=== PATIENT | male | born 1990 | race Caucasian/White ===

== ENCOUNTER 2017-03-22 09:56 | Day surgery (SDC) | payer OTHER ==
[2017-03-22] VITALS (11 sets, daily range): BP systolic 114–132; BP diastolic 59–86
[~2017-03-22] VITALS: Ht 200.7 cm; Wt 121.2 kg
[~2017-03-22 09:56] MED LIST: ELUX100T; cefazolin/dext.iso 2gm/50ml 50 ML IV ONE; famotidine 20mg tablet PO ONE; ringers solution, lacted 1,000 ML IV SCH
[2017-03-22] MEDS ORDERED: LIDOcaine 1% (10mg/ml) 2ml vial ONE (10:16)
[2017-03-22] MEDS ORDERED: ROPIVAcaine 0.5% (5mg/ml) 30ml vial ONE (11:14)
[2017-03-22] MEDS ORDERED: LIDOcaine 1% 30ml vial 30 ML ONE (11:14)
[2017-03-22] MEDS ORDERED: midazolam 2 mg/2 ml injection ONE ×2 (11:19)
[2017-03-22] MEDS ORDERED: fentaNYL/PF 50MCG/1 ML 2ML syringe ONE (11:20)
[2017-03-22] MEDS ORDERED: propofol inj 20 ML IV ONE (11:22)
[2017-03-22] MEDS ORDERED: rocuronium 10mg/ml inj IV ONE (11:23)
[2017-03-22] MEDS ORDERED: sevoflurane 250ml liquid IH ONE (11:38)
[2017-03-22] MEDS ORDERED: ringers solution, lacted 1,000 ML IV ONE (12:06)
[2017-03-22] MEDS ORDERED: morphine 2 MG/ML inj. syringe IV PRN ×2 (12:10)
[2017-03-22] MEDS ORDERED: ondansetron/PF 4mg/2ml inj IV PRN (12:10)
[2017-03-22] MEDS ORDERED: labetalol 20mg/4ml (5mg/ml) syringe IV PRN (12:10)
[2017-03-22] MEDS ORDERED: meperidine/PF 50mg/ml syringe IV PRN ×2 (12:10)
[2017-03-22] MEDS ORDERED: hydrALAZINE 20mg/ml inj. IV PRN (12:10)
[2017-03-22] MEDS ORDERED: meperidine/PF 25mg/ml syringe IV ONE (12:10)
[2017-03-22] MEDS ORDERED: dexamethasone sod phosphate 4mg/ml inj. ONE (12:19)
[2017-03-22] MEDS ORDERED: ondansetron/PF 4mg/2ml inj ONE (12:19)
[2017-03-22] MEDS ORDERED: povidone-iodine 10% topical ointment 28.4gm TP ONE (15:03)
== END 2017-03-22 16:45 | disposition home or self-care (01) ==
LOC: PAS 09:56
DX: S62.325A Displaced fracture of shaft of fourth metacarpal bone, left hand, initial encounter for closed fracture (principal); S62.327A Displaced fracture of shaft of fifth metacarpal bone, left hand, initial encounter for closed fracture; Z72.89 Other problems related to lifestyle; Z98.890 Other specified postprocedural states; X58.XXXA Exposure to other specified factors, initial encounter; Y93.89 Activity, other specified; Y92.89 Other specified places as the place of occurrence of the external cause; Y99.8 Other external cause status
CPT/HCPCS: 26615; A4565; A6222; A6449; C1713; J0690; J1100; J2250; J2405; J2704; J2795; J3010; J3490; J7120; A7000